=== PATIENT | female | born 1945 | race Caucasian/White ===

== ENCOUNTER → 2019-04-21 | Day surgery (SDC) | payer MEDICARE ==
[~2019-04-21] MED LIST: ASPIRIN81 MG PO; CARVEDILOL12.5 MG PO; FENTANYL CITRATE/PF 100MCG/2 ML INJ ONE; HYDROCHLOROTHIA25 MG PO; MIDAZOLAM HCL 2 MG/2 ML VIAL ONE; OR PHACO EYE KIT ONE; PANTOPRAZOLE SO40 MG PO; PREOP PHACO EYE KIT ONE; SINGULAIR10 MG PO
--- OUTSIDE RECORDS SUMMARY | 2019-04-21 11:24 | XMS REPORT | Clinical Summary ---
Author Author [employer] Address Unknown Phone Unavailable Care Team Providers Care Pick Up And Delivery Driver Name Role Phone Enid Berry MD PCP Unavailable Allergies Comments Active Allergy Reactions Severity Noted Date Codeine 05/26/2018 Medications End Date Status Medication Sig Dispensed Refills Start Date Active aspirin (ECOTRIN) 81 MG Take 81 mg by 0 enteric coated tablet mouth every evening. Active carvedilol (COREG) 12.5 Take 12.5 mg 0 MG tablet by mouth 2 (two) times a day with meals. Active hydroCHLOROthiazide Take 25 mg by 0 (HYDRODIURIL) 25 MG mouth daily. tablet Active omeprazole (PriLOSEC) 20 Take 20 mg by 0 MG capsule mouth daily as needed. Active lisinopril Take 1 tablet 30 tablet 3 (PRINIVIL,ZESTRIL) 10 mg (10 mg total) 8 tablet by mouth daily for 30 days. 05/27/2018 Discontinued rosuvastatin (CRESTOR) 5 Take 5 mg by 0 MG tablet mouth every evening. 06/26/2018 atorvastatin (LIPITOR) 40 Take 1 tablet 30 tablet 3 MG tablet (40 mg total) 8 by mouth nightly for 30 days. Active Problems Problem Noted Date Chest pain 05/26/2018 Encounters Care Team Description Date Type Specialty Vita Merino MD Ghosh, Sidharth, MD Chest pain, unspecified type (Primary Dx) 05/26/2018 Emergency General Internal Medicine - 05/27/2018 after 04/20/2018 Social History Date Tobacco Use Types Packs/Day Years Used Never Smoker Smokeless Tobacco: Never Used Alcohol Use Drinks/Week oz/Week Comments Yes rarely Sex Assigned at Date Recorded Not on file Industry Job Start Date Occupation Not on file Not on file Not on file Travel End Travel History Travel Start No recent travel history available. Last Filed Vital Signs Time Taken Vital Sign Reading 05/27/2018 3:24 PM CDT Blood Pressure 92/54 05/27/2018 3:24 PM CDT Pulse 63 05/27/2018 3:24 PM CDT Temperature 36.9 C (98.5 F) 05/27/2018 3:24 PM CDT Respiratory Rate 18 05/27/2018 3:24 PM CDT Oxygen Saturation 94% - Inhaled Oxygen - Concentration 05/26/2018 8:59 AM CDT Weight 105 kg (232 lb) 05/26/2018 8:59 AM CDT Height 177.8 cm (5' 10") 05/26/2018 8:59 AM CDT Body Mass Index 33.29 Plan of Treatment Health Maintenance Due Date Last Done Comments BREAST CANCER SCREENING 1997 COLONOSCOPY SCREENING 1997 SHINGLES VACCINES (#1) 1997 65+ PNEUMOCOCCAL VACCINE 2012 (1 of 2 - PCV13) INFLUENZA VACCINE 04/16/2019 Procedures Comments Procedure Name Priority Date/Time Associated Diagnosis NM MYOCARDIAL PERFUSION Routine 05/27/2018 REST STRESS 1 DAY 1:15 PM CDT CV STRESS TEST NUCLEAR Routine 05/27/2018 CARDIO 1:15 PM CDT CV STRESS TEST NUCLEAR Routine 05/27/2018 CARDIO 1:15 PM CDT LIPID PANEL Routine 05/27/2018 5:04 AM CDT ECG 12-LEAD Routine 05/26/2018 4:46 PM CDT THYROID STIMULATING Routine 05/26/2018 HORMONE 4:13 PM CDT TROPONIN Timed 05/26/2018 4:13 PM CDT ECHOCARDIOGRAM 2D Routine 05/26/2018 COMPLETE W MMODE SPECTRAL 2:31 PM CDT COLOR DOPPLER ([id number]) ECG 12-LEAD Routine 05/26/2018 12:37 PM CDT TROPONIN Timed 05/26/2018 12:12 PM CDT ZZESTIMATED GFR STAT 05/26/2018 9:09 AM CDT B NATRIURETIC PEPTIDE STAT 05/26/2018 9:09 AM CDT COMPREHENSIVE METABOLIC STAT 05/26/2018 PANEL 9:09 AM CDT HC COMPLETE BLD COUNT STAT 05/26/2018 W/AUTO DIFF 9:09 AM CDT TROPONIN STAT 05/26/2018 9:09 AM CDT XR CHEST 1 VW PORTABLE STAT 05/26/2018 9:08 AM CDT ECG 12-LEAD STAT 05/26/2018 9:01 AM CDT ECG 12-LEAD Routine 05/26/2018 9:01 AM CDT ECG ED PRELIMINARY Routine 05/26/2018 INTERPRETATION 8:59 AM CDT after 04/20/2018 Results * Cv stress procedure (05/27/2018 1:15 PM CDT) Resting HR 68 [facility] Resting BP 124 [facility] Peak MET 7.0 [facility] Achieved Protocol Name [facility] MUSE Time in 00:05:16 [facility] Exercise Phase Max Systolic BP 160 [facility] Max Diastolic 80 [facility] BP Max Heart Rate 120 [facility] Max Predicted 150 [facility] Heart Rate Target HR (220 - Age)*100% [facility] Formula Test Indication chest pain [facility] Arrhy During Ex [facility] ECG Interp [facility] Before EX ECG Interp [facility] During Ex Ex Summary [facility] Comment Overall HR [facility] Response to Exercise Overall BP [facility] Response To Exercise Reason for [facility] Termination Stress Test Sub optimal heart rate-Patient [facility] Impression unable to continue. switched to [employer]- Specimen Performing Organization Address City/State/Zipcode Phone Number [facility] [address] [place] [address] * Cv stress test (05/27/2018 1:15 PM CDT) Resting HR 65 [facility] Peak MET 1.0 [facility] Achieved Protocol Name ILIANA [facility] M[facility] Time in 00:01:00 [facility] Exercise Phase Max Systolic BP 140 H MUSE Max Diastolic 80 H MUSE BP Max Heart Rate 85 H MUSE Max Predicted 150 H MUSE Heart Rate Target HR (220 - Age)*100% [facility] M[facility] Formula Test Indication chest pain [facility] M[facility] Stress Test Waveform interpreted in report [facility] Impression associated with image study. No interpretation is provided as part of this Stress ECG report.--Electronically Signed By Yusuf Martin MD ([id number]), editor farm journal [place] ([id number]) on 05/27/2018 10:32:27 AM Target HR 127.50 bpm [facility] M[facility] Specimen Performing Organization Address [facility] Phone Number [facility] [address] [place] [address] * Myocardial perfusion (05/27/2018 1:15 PM CDT) Target HR 127.50 bpm [facility] Resting HR 74 BPM [facility] Rest[facility] BP 124/90 mmHg [facility] Specimen Narrative Performed At [facility] The study is normal. Study Quality: good. SPECT images demonstrate a normal perfusion study. Normal left ventricular systolic function. All segments of left ventricle demonstrated normal wall motion, normal wall thickness. Probably normal left ventricular perfusion. There is a diaphragmatic attenuation of the apical inferior wall with normal wall motion. Performing Organization Address [facility] Phone Number [facility] [address] [place] [address] * Lipid panel (05/27/2018 5:04 AM CDT) Cholesterol 228 (H) <200 mg/dL [facility] DEPARTMENT OF PATHOLOGY AND GENOMIC MEDICINE Triglycerides 203 (H) <150 mg/dL [facility] DEPARTMENT OF PATHOLOGY AND GENOMIC MEDICINE HDL cholesterol 44 >40 mg/dL [facility] DEPARTMENT OF PATHOLOGY AND GENOMIC MEDICINE LDL cholesterol 144 (H)Comment: Result <100 mg/dL [facility] obtained by direct LDL DEPARTMENT OF measurement PATHOLOGY AND GENOMIC MEDICINE Lipid panel SeeBelow [facility] interpretation Comment: DEPARTMENT OF Total Cholesterol PATHOLOGY AND (mg/dL) GENOMIC <200 MEDICINE Desirable 200-239Borderline -high >=240High Triglycerides (mg/dL) <150 Normal 150-199Borderline -high 200-499High >=500Very high HDL Cholesterol (mg/dL) <40Low (male) <40Low (female) LDL Cholesterol (mg/dL) <100 Optimal 100-129Near or above optimal 130-159Borderline -high 160-189High >=190Very high Risk Catergories that modify LDL goals. Risk Catergories LDL goal (mg/dL) CHD and CHD risk equivalent<100 (10-year risk >20%) Multiple (2+) risk factors <130 (10-year risk=<20%) 0-1 risk factors <160 (<10-year risk) Defining levels of lipids in metabolic syndrome Triglycerides >=150 mg/dL HDL Cholesterol Men <40 mg/dL Women <40 mg/dL Non-HDL cholesterol is a second target for therapy in persons with high triglycerides (>=200 mg/dL) Specimen Plasma specimen Performing Organization Address City/[facility] Phone Number [facility] [id number] [place] [address] [place] [address] PATHOLOGY AND GENOMIC MEDICINE * ECG 12 lead (05/26/2018 4:46 PM CDT) Only the most recent of 4 results within the time period is included. Ventricular 54 [facility] rate Atrial rate 54 [facility] IN interval 142 [facility] QRSD interval 94 [facility] QT interval 440 [facility] QTC interval 417 [facility] P axis 1 -11 [facility] QRS axis 1 -21 [facility] T wave axis 4 [facility] EKG impression Sinus bradycardia-Nonspecific [facility]USE T wave abnormality-Abnormal ECG-In automated comparison with ECG of 26-MAY-2018 12:37,-No significant change was found- Specimen Performing Organization Address City/[facility] Phone Number [facility] [address] [place] [address] * Troponin (05/26/2018 4:13 PM CDT) Only the most recent of 3 results within the time period is included. Troponin <0.300 0.000 - 0.300 ng/mL [facility] Comment: DEPARTMENT OF 0.30 - 1.49 PATHOLOGY AND ng/mlMay GENOMIC indicate increased risk of MEDICINE acute coronary syndrome. >=1.5 ng/ml Consistent with acute myocardial infarction. The diagnostic value of a single normal or non-diagnostic result is questionable.Serial samples at 2-6 hour intervals are required to rule out acute myocardial injury. Specimen Plasma specimen Performing Organization Address City/[facility]/Zipcode Phone Number [facility] [address] [place] [address] PATHOLOGY AND [employer] MEDICINE * Thyroid stimulating hormone (05/26/2018 4:13 PM CDT) Pathologist [facility] TSH 2.20 0.27 - 4.20 uIU/mL [facility] DEPARTMENT OF PATHOLOGY AND [facility] Specimen Plasma specimen Performing Organization Address City/[facility] Phone Number [facility] DEPARTMENT OF [address] [place] [address] [place] [address] PATHOLOGY AND [facility] MEDICINE * Echocardiogram complete w contrast and 3D if needed (05/26/2018 2:31 PM CDT) AoV Area, Vmax 2.28 cm2 [facility] AoV Area, VTI 2.62 cm2 [facility] AoV Mean PG 5.87 mmHg [facility] AoV Peak PG 11.78 mmHg [facility] AoV Vmax 1.72 m/s [facility] AoV VTI 0.32 m [facility] IVS,d 0.86 cm [facility] LV,d 4.26 cm [facility] LV EF,A2C 54.82 % [facility] LV EF,A4C 55.31 % [facility] LV EF,BP 55.65 % [facility] Martínez Colbert,d A2C 7.42 cm [facility] Martínez Colbert,d A4C 7.13 cm [facility] Martínez Colbert,s A2C 6.44 cm [facility] Martínez Colbert,s A4C 6.34 cm [facility] LV,s 2.86 cm [facility] LV SV,A2C 31.30 % [facility] LV SV,A4C 36.32 % [facility] LV Vol,d A2C 57.09 mL [facility] LV Vol,d A4C 65.66 ml [facility] LV Vol,d BP 62.12 ml [facility] LV Vol,s A2C 25.79 mL [facility] LV Vol,s A4C 29.34 ml [facility] LV Vol,s BP 27.55 nl [facility] LVOT Diam,S 2.08 cm [facility] LVOT Vmax 1.15 m/s [facility] LVOT VTI 0.24 m [facility] LVPWD,d 1.14 cm [facility] TR Vpeak 2.30 mm/s [facility] MV E A ratio 0.66 mmHg [facility] TR pk grad 13.36 mmHg [facility] E wave 275.21 msec [facility] decelartion time MV Peak A Alex 1.09 m/s [facility] MV valve area p 5.18 cm2 [facility] 1/2 method MV Peak E Alex 0.72 m/s [facility] MV stenosis 42.45 ms [facility] pressure 1/2 time AV LVOT peak 5.26 mmHg [facility] gradient LV SYS VOL 31.24 ml [facility] LV MILLER VOL 81.12 ml [facility] LV SV Teich 2D 49.88 ml [facility] LVOT SI 37.20 ml/m2 [facility] AoV Cusp sep 1.48 [facility] AoV Vmn 1.12 [facility] IVS s 2D 1.14 [facility] LA Ao Ratio 1.32 [facility] Mmode LVOT Vmn 0.72 [facility] Ao root annulus 3.38 cm [facility] PV AT 83.04 msec [facility] LVOT mean grad 2.41 mmHg [facility] LVPW s PLAX 1.26 cm [facility] MV Decel slope 2.61 m/s2 [facility] LA Vol MOD A4C 26.71 ml [facility] Velocity Ratio 0.67 m/s [facility] (V1/V2) EF 61.49 % [facility] E/A ratio 0.66 [facility] LVOT area 3.40 cm2 [facility] LA volume 31.0 cm3 [facility] LA Area d A4C 27 cm2 [facility] RVSP (TR) 26.15 mmHg [facility] RA pressure 5.00 mmHg [facility] RVSP 26.15 mmHg [facility] LA diam s 4.50 cm [facility] Aortic Root 3.40 cm [facility] D E excurs 1.80 [facility] E f slope 0.06 [facility] E prime lat 0.06 [facility] E ira sept 0.11 [facility] PV acc T slope 9.00 [facility] Specimen Narrative Performed At [facility] The left ventricle chamber size is normal. Left Ventricular ejection fraction is 60 - 65%. No pericardial effusion There is mild sclerosis of the aortic valve leaflets. Spectral Doppler shows impaired relaxation pattern of left ventricular diastolic filling. Performing Organization Address City/State/Zipcode Phone Number [facility] [address] [place] [address] * Estimated GFR (05/26/2018 9:09 AM CDT) Pathologist [facility] GFR Non Af Amer 55 (A) mL/min/1.73 m2 [facility] DEPARTMENT OF PATHOLOGY AND GENOMIC MEDICINE GFR Af Amer 66 mL/min/1.73 m2 [facility] Comment: DEPARTMENT OF Chronic kidney disease: <60 PATHOLOGY AND mL/min/1.73m2 GENOMIC Kidney failure: <15 MEDICINE mL/min/1.73m2 The estimated GFR is calculated from the IDMS-traceable Modification of Diet in Renal Disease Equation. The accuracy of the calculation is poor when the creatinine is normal. Calculated values >90 mL/min/1.73m2 are not reported. This equation has not been validated in children (<18 years), women, the elderly (>70 years), or ethnic groups other than Caucasians and Americans. Specimen Plasma specimen Performing Organization Address City/[facility]/Zipcode Phone Number [address] [place] [address] PATHOLOGY AND GENOMIC MEDICINE * CBC with platelet and differential (05/26/2018 9:09 AM CDT) Pathologist [facility] WBC 11.58 (H) 4.50 - 11.00 k/uL [facility] DEPARTMENT OF PATHOLOGY AND GENOMIC MEDICINE RBC 4.97 4.20 - 5.50 m/uL [facility] DEPARTMENT OF PATHOLOGY AND GENOMIC MEDICINE HGB 15.2 12.0 - 16.0 g/dL [facility] DEPARTMENT OF PATHOLOGY AND GENOMIC MEDICINE HCT 45.9 37.0 - 47.0 % [facility] DEPARTMENT OF PATHOLOGY AND GENOMIC MEDICINE MCV 92.4 82.0 - 100.0 fL [facility] DEPARTMENT OF PATHOLOGY AND GENOMIC MEDICINE MCH 30.6 27.0 - 34.0 pg [facility] DEPARTMENT OF PATHOLOGY AND GENOMIC MEDICINE MCHC 33.1 31.0 - 37.0 g/dL [facility] DEPARTMENT OF PATHOLOGY AND GENOMIC MEDICINE RDW - SD 44.1 37.0 - 55.0 fL [facility] DEPARTMENT OF PATHOLOGY AND GENOMIC MEDICINE MPV 11.2 8.8 - 13.2 fL [facility] DEPARTMENT OF PATHOLOGY AND GENOMIC MEDICINE Platelet count 308 150 - 400 k/uL [facility] DEPARTMENT OF PATHOLOGY AND GENOMIC MEDICINE Nucleated RBC 0.00 /100 WBC [facility] DEPARTMENT OF PATHOLOGY AND GENOMIC MEDICINE Neutrophils 69.4 (H) 39.0 - 69.0 % [facility] DEPARTMENT OF PATHOLOGY AND GENOMIC MEDICINE Lymphocytes 13.3 (L) 25.0 - 45.0 % [facility] DEPARTMENT OF PATHOLOGY AND GENOMIC MEDICINE Monocytes 15.8 (H) 0.0 - 10.0 % [facility] DEPARTMENT OF PATHOLOGY AND GENOMIC MEDICINE Eosinophils 0.0 0.0 - 5.0 % [facility] DEPARTMENT OF PATHOLOGY AND GENOMIC MEDICINE Basophils 0.2 0.0 - 1.0 % [facility] DEPARTMENT OF PATHOLOGY AND GENOMIC MEDICINE Specimen Blood Performing Organization Address [facility] Phone Number [address] [place] [address] PATHOLOGY [facility] GENOMIC [facility] * B natriuretic peptide (05/26/2018 9:09 AM CDT) Pathologist [facility] BNP 33 0 - 100 pg/mL [facility] DEPARTMENT PATHOLOGY AND GENOMIC MEDICINE Specimen Blood Performing Organization Address City/[facility]/Zipcode Phone Number [address] [place] [address] PATHOLOGY [facility] * Comprehensive metabolic panel (05/26/2018 9:09 AM CDT) [facility] Sodium 139 135 - 148 mEq/L [facility] DEPARTMENT OF PATHOLOGY AND GENOMIC MEDICINE Potassium 4.3 3.5 - 5.0 mEq/L [facility] DEPARTMENT OF PATHOLOGY AND GENOMIC MEDICINE Chloride 104 98 - 112 mEq/L [facility] DEPARTMENT OF PATHOLOGY AND GENOMIC MEDICINE CO2 23 (L) 24 - 31 mEq/L [facility] DEPARTMENT OF PATHOLOGY AND GENOMIC MEDICINE Anion gap 12@ANIO 7 - 15 mEq/L [facility] DEPARTMENT OF PATHOLOGY AND GENOMIC MEDICINE BUN 25 (H) 8 - 23 mg/dL [facility] DEPARTMENT OF PATHOLOGY AND GENOMIC MEDICINE Creatinine 1.0 (H) 0.5 - 0.9 mg/dL [facility] DEPARTMENT OF PATHOLOGY AND GENOMIC MEDICINE Glucose 99 65 - 99 mg/dL [facility] DEPARTMENT OF PATHOLOGY AND GENOMIC MEDICINE Calcium 8.7 (L) 8.8 - 10.2 mg/dL [facility] DEPARTMENT OF PATHOLOGY AND GENOMIC MEDICINE Protein 7.7 6.3 - 8.3 g/dL [facility] Comment: DEPARTMENT OF [employer] PATHOLOGY AND 4.6-7.0 g/dL GENOMIC 1 MEDICINE week 4.4-7.6 g/dL 7 months-1year 5.1-7.3 g/dL 1-2 years5.6-7 .5 g/dL >3 years6.0-8 .0 g/dL 18-150 6.3-8.3 g/dL Albumin 4.2 3.5 - 5.0 g/dL [facility] DEPARTMENT OF PATHOLOGY AND GENOMIC MEDICINE A/G ratio 1.2 0.7 - 3.8 [facility] DEPARTMENT OF PATHOLOGY AND GENOMIC MEDICINE Alkaline 99 35 - 104 U/L [facility] phosphatase DEPARTMENT OF PATHOLOGY AND GENOMIC MEDICINE AST 14 10 - 35 U/L [facility] DEPARTMENT OF PATHOLOGY AND GENOMIC MEDICINE ALT 15 5 - 50 U/L [facility] DEPARTMENT OF PATHOLOGY AND GENOMIC MEDICINE Total bilirubin 0.3 0.0 - 1.2 mg/dL [facility] DEPARTMENT OF PATHOLOGY AND GENOMIC MEDICINE Specimen Plasma specimen Performing Organization Address City/[facility] [place] [place] [address] PATHOLOGY AND GENOMIC MEDICINE * XR Chest 1 Vw Portable (05/26/2018 9:08 AM CDT) Specimen Narrative Performed At EXAMINATION:XR CHEST 1 VW PORTABLE RADIANT CLINICAL HISTORY:chest pain COMPARISON:No priors IMPRESSION: Heart and mediastinum mildly prominent probably due to AP technique. Osseous structures appear intact. Lungs are clear. [facility]-[id number] Procedure Note Interface, Radiology Results Incoming - 05/26/2018 9:13 AM CDT EXAMINATION: XR CHEST 1 VW PORTABLE CLINICAL HISTORY: chest pain COMPARISON: No priors IMPRESSION: Heart and mediastinum mildly prominent probably due to AP technique. Osseous structures appear intact. Lungs are clear. [facility]-[id number] Performing Organization Address City/[facility] Phone Number [facility] [address] [place] [address] * ECG ED Preliminary Interpretation - NOT AN ORDER (05/26/2018 8:59 AM CDT) Narrative Performed At Vita Merino MD 05/26/20183:49 PM ECG ED Preliminary Interpretation - Not an Order Performed by: VITA MERINO Authorized by: VITA MERINO ECG reviewed by ED Physician in the absence of a railroad car repair supervisor: yes (read at 0902) Previous ECG: Previous ECG:Unavailable Interpretation: Interpretation: abnormal Rate: ECG rate:56 ECG rate assessment: bradycardic Rhythm: Rhythm: sinus rhythm and sinus bradycardia Ectopy: Ectopy: none QRS: QRS axis:Left Conduction: Conduction: normal ST segments: ST segments:Normal T waves: T waves: inverted Inverted:V1, V2 and III after 04/20/2018 Insurance Type Payer Benefit Subscriber ID Effective Phone Address Plan / Dates Group Medicare MEDICARE MEDICARE xxxxxxxxxx 2012- CYRUS, PART A AND Present [place] B Commercial AAR AAR xxxxxxxxxxx [id number] SUPPLEMENT resent Advance Directives Patient has advance care planning documents on file. For more information, agatha mejia contact: Cyrus Barnes [address] [place] [address]
--- OUTSIDE RECORDS SUMMARY | 2019-04-21 11:24 | XMS REPORT ---
Author Author [facility] Address Unknown Phone Unavailable Care Team Providers Care [employer] Name Role Phone Unavailable Unavailable Payers Payer Name Policy Type Policy Number Effective Date Expiration Date Problems This patient has no known problems. Allergies, Adverse Reactions, Alerts Allergy Name Allergy Type Status Severity Reaction(s) Onset Date Inactive Date Treating Clinician Comments codeine DA Active U 2019-04-10 00:00:00 codeine DA Active WI 2019-01-30 00:00:00 codeine DA Active WI 2018-07-18 00:00:00 codeine DA Active WI 2018-07-17 00:00:00 codeine DA Active WI 2018-05-20 00:00:00 codeine DA Active WI 2017-09-26 00:00:00 Medications This patient has no known medications. Results Test Description Test Time Test Comments Text Results Atomic Results Result Comments - XR FLUORO FOR SPINE INJ 2019-04-10 08:32:00 Patient Name: WILLIAM BARTON IMELDA Unit No: [id number] EXAMS: CPT CODE: [id number] XR FLUORO FOR SPINE INJ 63509 LUMBAR TRANSFORAMINAL INJECTION REFERRING PHYSICIAN: PREOPERATIVE DIAGNOSIS: Degenerative Lumbar Disc Disease. POSTOPERATIVE DIAGNOSIS: Bilateral radiculopathy PROCEDURES PERFORMED 1. Fluoroscopically guided needle localization of the bilateral L4, bilateral L5 spinal nerve/nerves with transforaminal epidural steroid injection/injections. 2. Transforaminal epidurogram/epidurograms at bilateral L4, bilateral L5. FINDINGS: Poor filling all, there is a retrolisthesis at L4-5. Concordant provocation bilateral L5 hips. Pain relief-100%. ANTIBIOTIC: Cefazolin ESTIMATED BLOOD LOSS: Minimal ANESTHESIA: (TIVA )Total intravenous anesthetic (patient intolerant to sedatives and hypnotics) COMPLICATIONS: None DETAILS OF PROCEDURE: After obtaining stable vital signs, informed consent and IV access, with no known contraindications to proceeding, the patient was taken to the fluoroscopy suite and placed in a prone position with all extremities padded and appropriate monitors placed. A sterile prep and drape was performed over the lumbosacral spine. Using fluoroscopic visualization at each level the insertion site was marked for a paravertebral approach to the foramen. Using standard technique, a 25 gauge needle was advanced to the base of the pedicle. In AP view, final positioning was obtained outside the 6 on the clock position on the pedicle. Then, 1 ml of Isovue-300 contrast was injected to produce the epidurograms. No paresthesias were elicited with needle insertion or injection and there were no signs of intravascular or intrathecal uptake. Then, with 1 ml of 4% lidocaine and 10 mg of triamcinolone was injected incrementally with frequent negative aspirations. There were no signs of intravascular or intrathecal uptake. Each subsequent level was done using the same technique and medications. The patient's vital signs remained stable. The patient was taken to the PACU in good condition. at 0832 Reported and signed by: Jeffy Sosa M.D. [facility] NAME: WILLIAM BARTON IMELDA [address] [facility] PHYS: DOCUD - Jeffy Sosa MD [place], [place] [address] : 1945 AGE: 73 SEX: F LOC: МАРИНА PHONE #: [phone] EXAM DATE: 04/10/2019 STATUS: REG [facility] FAX #: [phone] RAD #: D/C DT PAGE 1 Signed Report (CONTINUED) Patient Name: WILLIAM BARTON IMELDA Unit No: [id number] EXAMS: CPT CODE: [id number] XR FLUORO FOR SPINE INJ 94278 <Continued> CC: Technologist: Ekaterina Peacock(R) Transcribed D/ (0832) JaimeUVD [facility] NAME: WILLIAM BARTON IMELDA [address] [facility] PHYS: Jeffy Bowen MD [place], [place] [address] : 1945 AGE: 73 SEX: F LOC: МАРИНА PHONE #: [phone] EXAM DATE: 04/10/2019 STATUS: REG [facility] FAX #: [phone] RAD #: D/C DT PAGE 2 Signed Report Patient Name: WILLIAM BARTON IMELDA Unit No: [id number] EXAMS: CPT CODE: [id number] XR FLUORO FOR SPINE INJ 96106 <Continued> Orig Print D/T: S: 04/10/2019 (0836) [facility] NAME: WILLIAM BARTON [address] [facility] PHYS: Jeffy Bowen MD [place], [place] [address] : 1945 AGE: 73 SEX: F LOC: МАРИНА PHONE #: [phone] EXAM DATE: 04/10/2019 STATUS: REG [facility] FAX #: [phone] RAD #: D/C DT PAGE 3 Signed Report - XR C-SPINE 6+V 2019-04-01 21:01:00 Patient Name: WILLIAM BARTON IMELDA Unit No: [id number] EXAMS: CPT CODE: [id number] XR C-SPINE 6+V 7205 2 CERVICAL SPINE 5 VIEWS PLUS FLEXION AND EXTENSION COMMENT: Vertebral body heights are maintained. There is interspace narrowing and endplate degenerative change from C3 to T1. Reversal the normal curvature the spine is present at C3-4. No abnormal motion is seen with flexion and extension. at 2101 Reported and signed by: Pedro Roach MD CC: Jeffy Sosa MD Technologist: PASCUAL GREEN, RT(R) Transcribed D/ (2100) tELIJCL [facility] NAME: WILLIAM BARTON IMELDA [address] [place] [address] PHYS: Jeffy Bowen MD : 1945 AGE: 73 SEX: F [place], [place] [address] LOC: Y.MRI PHONE #: [phone] EXAM DATE: 03/31/2019 STATUS: [facility] FAX #: [phone] RAD #: D/C DT PAGE 1 Signed Report Patient Name: WILLIAM BARTON IMELDA Unit No: [id number] EXAMS: CPT CODE: [id number] XR C-SPINE 6+V 86829 <Continued> Orig Print D/T: S: 04/01/2019 (2105) [facility] NAME: WILLIAM BARTON IMELDA [address] [facility] PHYS: DOCUD - DoctorJeffy MD : 1945 AGE: 73 SEX: F [place] [address] LOC: Y.MRI PHONE #: [phone] EXAM DATE: 03/31/2019 STATUS: [facility] FAX #: [phone] RAD #: D/C DT PAGE 2 Signed Report - MRI C-SPINE W/O CONT 2019-03-31 14:57:00 Patient Name: WILLIAM BARTON IMELDA Unit No: [id number] EXAMS: CPT CODE: [id number] MRI C-SPINE W/O CONT 50452 DIAGNOSIS: 1. At C2-3 there is no evidence for disc bulge or herniation, bony canal or foraminal stenosis. 2. At C3-4 there is endplate spur formation and disc bulging lateralizing left posterior lateral and foraminal with mild left foraminal narrowing. No right foraminal stenosis is seen. The canal is stenotic with an AP diameter of 10 mm. 3. At C4-5 there is endplate spur formation and disc bulging lateralizing left paracentral impinging on the cord. The canal is stenotic with an AP diameter of 9 mm. No foraminal narrowing is seen. 4. At C5-6 there is endplate spur formation and mild disc bulging without canal or foraminal narrowing. 5. At C6-7 there is endplate spur formation and disc bulging without canal or foraminal narrowing. 6. At C7-T1 there is no evidence for disc bulge or herniation, bony canal or foraminal stenosis. COMMENT: COMPARISON: No prior exams available. Scans were performed in the sagittal and axial planes utilizing T1, gradient echo, T2 and inversion recovery images. Endplate and disc degeneration is seen from C3 to C7. The remaining discs are desiccated. There is a reversal the normal curvature the spine. The cord appears normal in size and signal. at 1457 Reported and signed by: Pedro Roach MD CC: Jeffy Sosa MD Technologist: Marley Alvarenga, RT(R) Transcribed D/ (7140) t.SABINAR.JCL [facility] NAME: WILLIAM BARTON IMELDA [address] [place] [address] PHYS: Jeffy Bowen MD : 1945 AGE: 73 SEX: F [place] [address] LOC: Y.MRI PHONE #: [phone] EXAM DATE: 03/31/2019 STATUS: REG [facility] FAX #: [phone] RAD #: D/C DT PAGE 1 Signed Report Patient Name: WILLIAM BARTON IMELDA Unit No: [id number] EXAMS: CPT CODE: [id number] MRI C-SPINE W/O CONT 64835 <Continued> Orig Print D/T: S: 03/31/2019 (3721) [facility] NAME: WILLIAM BARTON IMELDA [address] [place] [address] PHYS: Jeffy Bowen MD : 1945 AGE: 73 SEX: F [place] [address] LOC: Y.MRI PHONE #: [phone] EXAM DATE: 03/31/2019 STATUS: REG [facility] FAX #: [phone] RAD #: D/C DT PAGE 2 Signed Report - XR FLUORO FOR SPINE INJ 2019-01-30 08:40:00 Patient Name: WILLIAM BARTON IMELDA Unit No: [id number] EXAMS: CPT CODE: [id number] XR FLUORO FOR SPINE INJ 27294 LUMBAR TRANSFORAMINAL INJECTION AND LUMBAR FACET BLOCK REFERRING PHYSICIAN: PREOPERATIVE DIAGNOSIS: 1. Degenerative Lumbar Disc Disease. 2. Lumbar Facet Arthropathy POSTOPERATIVE DIAGNOSIS: Lumbar facet arthropathy lumbar radiculopathy PROCEDURES PERFORMED Fluoroscopically guided needle localization of the left L4 with transforaminal epidural steroid injections 2. Transforaminal epidurogram/epidurograms at left L4. 3. Fluoroscopic guided injections of the bilateral L4-5, bilateral L5-S1 intra-articular facets. 4. Arthrograms of the bilateral L4-5, bilateral L5-S1 lumbar facets FINDINGS: Concordant provocation left L4 nerve root hip, concordant provocation bilateral L4-5 facet back pain ANTIBIOTIC: Cefazolin ESTIMATED BLOOD LOSS: Minimal ANESTHESIA: (TIVA) Total intravenous anesthetic (patient intolerant to sedatives and hypnotics) COMPLICATIONS: None DETAILS OF PROCEDURE: After obtaining stable vital signs, informed consent and IV access, with no known contraindications to proceeding, the patient was taken to the fluoroscopy suite and placed in a prone position with all extremities padded and appropriate monitors placed. A sterile prep and drape was performed over the lumbosacral spine. Using fluoroscopic visualization at each level the insertion site was marked for a paraverte bral approach to the foramen. Using standard technique, a 25 gauge needle was advanced to the base of the pedicle. In AP view, final positioning was obtained outside the 6 o clock position on the pedicle. Then, 1 ml of Isovue-300 contrast was injected to produce the epidurograms. No paresthesias were elicited with needle insertion or injection and there were no signs of intravascular or intrathecal uptake. Then, with 1 ml of 4% lidocaine and 10 mg of triamcinolone was injected incrementally with frequent negative aspirations. There were no signs of intravascular or intrathecal uptake. The patient's vital signs remained stable. The patient was placed in a prone position and the lumbosacral spine [facility] NAME: WILLIAM BRATON IMELDA [address] [facility] PHYS: DOCUD - Doctor,Jeffy [place] MD [place], [place] [address] : 1945 AGE: 73 SEX: F LOC: МАРИНА PHONE #: [phone] EXAM DATE: 01/30/2019 STATUS: [facility] FAX #: [phone] RAD #: D/C DT PAGE 1 Signed Report (CONTINUED) Patient Name: WILLIAM BARTON IMELDA Unit No: [id number] EXAMS: CPT CODE: [id number] XR FLUORO FOR SPINE INJ 78750 <Continued> was prepped and draped in sterile fashion. Using standard technique, using fluoroscopic guidance, a 27-gauge needle was advanced into the facet joint and 2 mL of Isovue-300 contrast was injected to produce an arthrogram. Please see results of the arthrogram above. Then 2 mL was of 0.75 percent Marcaine and 2 mL of 4% lidocaine and 20 mg of triamcinolone was injected into the joint. Areas were cleaned of the prep and the patient was taken to the recovery room. GANGLION OF IMPAR INJECTION AND COCCYX BLOCK REFERRING PHYSICIAN: PREOPERATIVE DIAGNOSIS: Coccydynia POSTOPERATIVE DIAGNOSIS: Coccydynia PROCEDURES PERFORMED Fluoroscopically guided needle localization of the ganglion of impar and ganglion of impar block 2. Fluoroscopic guided needle localization of the coccyx and a coccyx block FINDINGS: 1. Good spread around the ganglion of impar and the coccyx ANTIBIOTIC: Cefazolin ESTIMATED BLOOD LOSS: Minimal ANESTHESIA:TIVA) Total intravenous anesthetic (patient intolerant to sedatives and hypnotics) COMPLICATIONS: None DETAILS OF PROCEDURE: After obtaining stable vital signs, informed consent and IV access, with no known contraindications to proceeding, the patient was taken to the fluoroscopy suite and placed in a prone position with all extremities padded and appropriate monitors placed. A sterile prep and drape was performed over the lumbosacral spine. Using fluoroscopic visualization at each level the insertion site was marked for a paravertebral approach to the ganglion of impar and coccyx. Using standard technique, a 25 gauge needle was advanced to the ganglion of impar and the coccyx in AP view, the needle was advanced to the ganglion impar and the coccyx and then1 ml of Isovue-300 contrast was injected to show the ganglion impar. AP, lateral and oblique views were documented. No paresthesias were elicited with needle insertion or injection and there were no signs of intravascular or intrathecal uptake. Then, 2 ml of 0.75% bupivacaine with 1 ml of 4% lidocaine and 10 mg of triamcinolone was injected [facility] NAME: WILLIAM BARTON IMELDA [address] [facility] PHYS: DOCUD - Doctor,Jeffy [place] MD [place], [place] [address] : 1945 AGE: 73 SEX: F LOC: МАРИНА PHONE #: [phone] EXAM DATE: 01/30/2019 STATUS: [facility] FAX #: [phone] RAD #: D/C DT PAGE 2 Signed Report (CONTINUED) Patient Name: WILLIAM BARTON IMELDA Unit No: [id number] EXAMS: CPT CODE: [id number] XR FLUORO FOR SPINE INJ 52070 <Continued> incrementally with frequent negative aspirations. There were no signs of intravascular or intrathecal uptake. Each sub sequent level was done using the same technique and medications. The patient's vital signs remained stable. The patient was taken to the PACU in good condition. at 0840 Reported and signed by: Jeffy Sosa M.D. CC: Jeffy Sosa MD Technologist: IGLESIA DOMINGO RT(R) Transcribed D/ (40) [facility] NAME: WILLIAM BARTON IMELDA [address] [facility] PHYS: Jeffy Bowen MD [place] [address] : 1945 AGE: 73 SEX: F LOC: МАРИНА PHONE #: [phone] EXAM DATE: 01/30/2019 STATUS: [facility] FAX #: [phone] RAD #: D/C DT PAGE 3 Signed Report Patient Name: WILLIAM BARTON IMELDA Unit No: [id number] EXAMS: CPT CODE: [id number] XR FLUORO FOR SPINE INJ 91192 <Continued> Orig Print D/T: S: 01/30/2019 (0844) [facility] NAME: WILLIAM BARTON IMELDA [address] [facility] PHYS: Jeffy Bowen MD [place], [place] [address] : 1945 AGE: 73 SEX: F LOC: МАРИНА PHONE #: [phone] EXAM DATE: 01/30/2019 STATUS: REG [facility] FAX #: [phone] RAD #: D/C DT PAGE 4 Signed Report - XR FLUORO FOR SPINE INJ 2018-10-03 14:59:00 Patient Name: WILLIAM BARTON Unit No: [id number] EXAMS: CPT CODE: [id number] XR FLUORO FOR SPINE INJ 33186 LUMBAR DISCOGRAM AND PLACEMENT OF INTRADISCAL STEROIDS REFERRING PHYSICIAN: PREOPERATIVE DIAGNOSIS: Degenerative lumbar disc disease. POSTOPERATIVE DIAGNOSIS: Symptomatic discs L4-5, L5-S1 . 2. PROCEDURE PERFORMED: Fluoroscopically guided needle localization of the level , L4-5, L5-S1 discs with provocative discography, placement of intradiscal steroids FINDINGS: The level L4-5, L5-S1 discogram showed: a) Provocation was positive for low back pain L4-5 L5-S1 b) L4-5 disc was positive with annular degeneration, L5-S1 disc was positive with annular degeneration c) Injectate volume:4 ml, she Omnipaque dye, 10 mg Kenalog, 10 mg Ancef, 1 mL of 0.75% Marcaine ANTIBIOTIC: Cefazolin IV and intradiscal ESTIMATED BLOOD LOSS:Minimal ANESTHESIA:(TIVA) Total intravenous anesthetic (patient intolerant to sedatives and hypnotics) COMPLICATIONS:None DETAILS OF PROCEDURE: After obtaining stable vital signs, informed consent and IV access, there were no laboratory, radiographic or other contraindications to proceeding. The patient received preoperative antibiotics and was taken to the fluoroscopy suite where the patient was placed in a prone position with all extremities padded and appropriate monitors placed. The patient was sterilely prepped and draped over the lumbosacral spine. Under fluoroscopic visualization the levels , L4-5, L5-S1 discs were visualized and the insertion sites were marked for paramedian approaches. Lidocaine 1.5%, 2 ml, was infiltrated into the skin, subcutaneous tissue, and superficial musculature after which a 20 gauge spinal introducer needle was advanced to the level of the facets. A 25 gauge curved B-bevel needle was then passed through the introducer and advanced into the center of the disc. [facility] NAME: WILLIAM BARTON [address] [facility] PHYS: DOCUD - DoctorJeffy MD [place], [place] [address] : 1945 AGE: 73 SEX: F LOC: BenynFRANSICO PHONE #: [phone] EXAM DATE: 10/03/2018 STATUS: [facility] FAX #: [phone] RAD #: D/C DT PAGE 1 Signed Report (CONTINUED) Patient Name: WILLIAM BARTON IMELDA Unit No: [id number] EXAMS: CPT CODE: [id number] XR FLUORO FOR SPINE INJ 58931 <Continued> No paresthesias were elicited. Isovue 300 contrast was then injected with a manometric syringe to produce the discogram. Opening, symptomatic and peak pressures were recorded. Each disc was then injected with antibiotics and the symptomatic discs were also injected with triamcinolone/bupivacaine. The needles were removed and sterile Band-Aids were placed over the insertion sites. The patient was taken to the recovery room in stable condition. Electronic[employer] lly Signed by Noah Sosa on 10/03/2018 at 1767 Reported and signed by: Jeffy Sosa M.D. CC: Jeffy Sosa MD Technologist: ELIZABETH JONES RT(R) Transcribed D/ (3737) tELIUVD [facility] NAME: WILLIAM BARTON IMELDA [address] [facility] PHYS: Jeffy Bowen MD [place] [address] : 1945 AGE: 73 SEX: F LOC: МАРИНА PHONE #: [phone] EXAM DATE: 10/03/2018 STATUS: [facility] FAX #: [phone] RAD #: D/C DT PAGE 2 Signed Report Patient Name: WILLIAM BARTON IMELDA Unit No: [id number] EXAMS: CPT CODE: [id number] XR FLUORO FOR SPINE INJ 17753 <Continued> Orig Print D/T: S: 10/03/2018 (1502) [facility] NAME: WILLIAM BARTON IMELDA [address] [facility] PHYS: Jeffy Bowen MD [place] [address] : 1945 AGE: 73 SEX: F LOC: МАРИНА PHONE #: [phone] EXAM DATE: 10/03/2018 STATUS: [facility] FAX #: [phone] RAD #: D/C DT PAGE 3 Signed Report
[2019-04-21 14:50] VITALS: BP 132/72
== END | disposition home or self-care (01) ==
LOC: OR 11:19
PROVIDERS: ATTEND Ophthalmology
DX: H25.11 Age-related nuclear cataract, right eye (principal); I10 Essential (primary) hypertension; E78.5 Hyperlipidemia, unspecified; R91.1 Solitary pulmonary nodule; M47.816 Spondylosis without myelopathy or radiculopathy, lumbar region; K21.9 Gastro-esophageal reflux disease without esophagitis; Z88.6 Allergy status to analgesic agent; Z01.810 Encounter for preprocedural cardiovascular examination; Z79.82 Long term (current) use of aspirin
CPT/HCPCS: 66984; 93005; J2250; J3010; V2632

== ENCOUNTER → 2019-05-05 | Day surgery (SDC) | payer MEDICARE ==
[2019-04-28 11:28] LABS: BASOPHILS # (AUTO) 0.1 (0.0-0.1); BASOPHILS % 0.5 % (0.0-1.0); EOSINOPHILS # (AUTO) 0.1 (0.0-0.4); EOSINOPHILS % 0.6 % (0.0-6.0); HEMATOCRIT 46.4 % (34.2-44.1); HEMOGLOBIN 15.3 g/dL (12.0-16.0); LYMPHOCYTES # (AUTO) 1.5 (1.0-3.2); MEAN CORPUSCULAR HEMOGLOBIN 31.3 pg (28-32); MEAN CORPUSCULAR VOLUME 94.9 fL (81-99); MONOCYTES # (AUTO) 1.5 (0.2-0.8); MONOCYTES % 16.1 % (4.4-11.3); NEUTROPHILS # (AUTO) 6.2 (2.1-6.9); NEUTROPHILS % 66.5 % (38.7-80.0); PLATELET COUNT 250 x10e3/uL (140-360); RED BLOOD COUNT 4.89 x10e6/uL (3.6-5.1); RED CELL DISTRIBUTION WIDTH 12.7 % (11.7-14.4)
[2019-04-28 12:08] LABS: LYMPHOCYTES % (MANUAL) 19 % (19-48); MONOCYTES % (MANUAL) 8 % (3.4-9.0); NEUTROPHILS % (MANUAL) 72 % (40-74); PLATELET ESTIMATE ADEQUATE; PLATELET MORPHOLOGY COMMENT NORMAL; RBC MORPHOLOGY COMMENT NORMAL
--- OUTSIDE RECORDS SUMMARY | 2019-05-05 09:24 | XMS REPORT | Clinical Summary ---
Author Author [facility] Organization [place] [facility] Address Unknown Phone Unavailable Care Team Providers Care Classics Teacher Name Role Phone Enid Berry MD PCP Allergies Comments Active Allergy Reactions Severity Noted [...] mouth daily for 30 days. 05/27/2018 Discontinued (Stop Taking at Discharge) rosuvastatin (CRESTOR) 5 Take 5 mg by [...] Emergency General Internal Medicine - 05/27/2018 after 05/04/2018 Social History Date Tobacco Use Types Packs/Day Years Used Never Smoker Smokeless Tobacco: Never Used Drinks/Week oz/Week Comments Alcohol Use rarely Yes Sex Assigned at Date Recorded Not on file Industry Job Start Date Occupation Not on file Not on file Not on file Travel End Travel History Travel Start No recent travel history available. Last Filed Vital Signs Reading Time Taken Comments Vital Sign 92/54 05/27/2018 3:24 PM CDT Blood Pressure 63 05/27/2018 3:24 PM CDT Pulse 36.9 C (98.5 F) 05/27/2018 3:24 PM CDT Temperature 18 05/27/2018 3:24 PM CDT Respiratory Rate 94% 05/27/2018 3:24 PM CDT Oxygen Saturation - - Inhaled Oxygen Concentration 105 kg (232 lb) 05/26/2018 8:59 AM CDT Weight 177.8 cm (5' 10") 05/26/2018 8:59 AM CDT Height 33.29 05/26/2018 8:59 AM CDT Body Mass Index Plan of Treatment Health Maintenance Due Date [...] MMODE SPECTRAL 2:31 PM CDT COLOR DOPPLER (03690) ECG 12-LEAD Routine 05/26/2018 12:37 PM CDT [...] Routine 05/26/2018 INTERPRETATION 8:59 AM CDT after 05/04/2018 Results * Cv stress procedure (05/27/2018 1:15 PM CDT) Resting HR 68 [facility] Resting BP 124 [facility] Peak MET 7.0 [facility] Achieved Protocol Name [facility] Time in 00:05:16 [facility] Exercise [...] MUSE Impression unable to continue. switched to Lexiscan- Specimen Performing Organization Address City/State/Zipcode Phone Number H MUSE [address] [place] [address] * Cv stress test (05/27/2018 1:15 PM CDT) Resting HR 65 [facility] MUSE Peak MET 1.0 [facility] MUSE Achieved Protocol Name ILIANA [facility] MUSE Time in 00:01:00 [facility] MUSE Exercise Phase Max Systolic BP 140 [facility] Max Diastolic 80 [facility] BP Max Heart Rate 85 [facility] Max Predicted 150 [facility] Heart Rate Target HR (220 - Age)*100% [facility] MUSE Formula Test Indication chest pain [facility] MUSE Stress Test Waveform interpreted in report [facility] MUSE Impression associated with image study. No interpretation is provided as part of this Stress ECG report.--Electronically Signed By Yusuf Martin MD ([id number]), greeting card editor [place]ida Park ([id number]) on 05/27/2018 10:32:27 AM Target HR 127.50 bpm [facility] MUSE Specimen Performing Organization Address [facility] Phone Number [facility] MUSE [address] [place] [address] * Myocardial perfusion (05/27/2018 1:15 PM CDT) Pathologist [facility] Target HR 127.50 bpm [facility] Resting HR 74 BPM [facility] Resting BP 124/90 [facility] Specimen Narrative Performed At [facility] The study is normal. Study Quality: good. SPECT images demonstrate a normal perfusion study. Normal left ventricular systolic function. All segments of left ventricle demonstrated normal wall motion, normal wall thickness. Probably normal left ventricular perfusion. There is a diaphragmatic attenuation of the apical inferior wall with normal wall motion. Performing Organization Address [facility] Phone Number [facility] [address] [place] [address] * Lipid panel (05/27/2018 5:04 AM CDT) Pathologist [facility] Cholesterol 228 (H) <200 mg/dL [facility] DEPARTMENT OF PATHOLOGY AND GENOMIC MEDICINE Triglycerides 203 (H) <150 mg/dL [facility] DEPARTMENT OF PATHOLOGY AND GENOMIC MEDICINE HDL cholesterol 44 >40 mg/dL [facility] DEPARTMENT OF PATHOLOGY AND GENOMIC MEDICINE LDL cholesterol 144 (H)Comment: Result <100 mg/dL [facility] obtained by direct LDL DEPARTMENT OF measurement PATHOLOGY AND GENOMIC MEDICINE Lipid panel SeeBelow [facility] interpretation Comment: DEPARTMENT OF Total Cholesterol [...] mg/dL) Specimen Plasma specimen Performing Organization Address City/[facility] Phone Number [facility] DE[facility] [address] [place] [address] PATHOLOGY AND GENOMIC MEDICINE * ECG 12 lead (05/26/2018 4:46 PM CDT) Only the most recent of 4 results within the time period is included. Ventricular 54 [facility] rate Atrial rate 54 [facility] NC interval 142 [facility] QRSD interval 94 [facility] QT interval 440 [facility] QTC interval 417 [facility] P axis 1 -11 [facility] QRS axis 1 -21 [facility] T wave axis 4 [facility] EKG impression Sinus bradycardia-Nonspecific [facility] T wave abnormality-Abnormal ECG-In automated comparison with ECG of 26-MAY-2018 12:37,-No significant change was found- Specimen Performing Organization Address City/[facility] Phone Number [facility] [address] [place] [address] * Troponin (05/26/2018 4:13 PM CDT) Only the most recent of 3 results within the time period is included. Troponin <0.300 0.000 - 0.300 ng/mL [facility] Comment: DEPARTMENT OF 0.30 - 1.49 PATHOLOGY AND ng/mlMay GENOMIC indicate increased risk of MEDICINE acute coronary syndrome. >=1.5 ng/ml Consistent with acute myocardial infarction. The diagnostic value of a single normal or non-diagnostic result is questionable.Serial samples at 2-6 hour intervals are required to rule out acute myocardial injury. Specimen Plasma specimen Performing Organization Address City/State/Zipcode Phone Number [facility] [place]MENT [place] [id number] [place] [address] [place] [address] PATHOLOGY AND GENOMIC MEDICINE * Thyroid stimulating hormone (05/26/2018 4:13 PM CDT) TSH 2.20 0.27 - 4.20 uIU/mL [facility] DEPARTMENT OF PATHOLOGY AND [facility] Specimen Plasma specimen Performing Organization Address [facility] Phone Number [address] [place] [address] PATHOLOGY AND GENOMIC MEDICINE * Echocardiogram complete w contrast and [...] LV EF,BP 55.65 % [facility] [place],d A2C 7.42 cm [facility] [place],d A4C 7.13 cm [facility] [place],s A2C 6.44 cm [facility] [place],s A4C 6.34 cm [facility] LV,s 2.86 [...] filling. Performing Organization Address City/State/Zipcode Phone Number [facility] [address] [place] [address] * Estimated GFR (05/26/2018 9:09 AM CDT) GFR Non Af Amer 55 (A) mL/min/1.73 m2 [facility] DEPARTMENT OF PATHOLOGY AND GENOMIC MEDICINE GFR Af Amer 66 mL/min/1.73 m2 [facility] Comment: DEPARTMENT OF Chronic kidney disease: [...] Americans. Specimen Plasma specimen Performing Organization Address City/[facility]/Zipcode Phone Number [address] [place] [address] PATHOLOGY AND GENOMIC MEDICINE * CBC with platelet and differential (05/26/2018 9:09 AM CDT) WBC 11.58 (H) 4.50 - 11.00 k/uL [facility] DEPARTMENT OF PATHOLOGY AND GENOMIC MEDICINE RBC 4.97 4.20 - 5.50 m/uL [facility] DEPARTMENT OF PATHOLOGY AND GENOMIC MEDICINE HGB 15.2 12.0 - 16.0 g/dL [facility] DEPARTMENT OF PATHOLOGY AND GENOMIC MEDICINE HCT 45.9 37.0 - 47.0 % [facility] DEPARTMENT OF PATHOLOGY AND GENOMIC MEDICINE MCV 92.4 82.0 - 100.0 fL [facility] DEPARTMENT OF PATHOLOGY AND GENOMIC MEDICINE MCH 30.6 27.0 - 34.0 pg [facility] DEPARTMENT OF PATHOLOGY AND GENOMIC MEDICINE MCHC 33.1 31.0 - 37.0 g/dL [facility] DEPARTMENT OF PATHOLOGY AND GENOMIC MEDICINE RDW - SD 44.1 37.0 - 55.0 fL [facility] DEPARTMENT OF PATHOLOGY AND GENOMIC MEDICINE MPV 11.2 8.8 - 13.2 fL [facility] DEPARTMENT OF PATHOLOGY AND GENOMIC MEDICINE Platelet count 308 150 - 400 k/uL [facility] DEPARTMENT OF PATHOLOGY AND GENOMIC MEDICINE Nucleated RBC 0.00 /100 WBC [facility] DEPARTMENT OF PATHOLOGY AND GENOMIC MEDICINE Neutrophils 69.4 (H) 39.0 - 69.0 % [facility] DEPARTMENT OF PATHOLOGY AND GENOMIC MEDICINE Lymphocytes 13.3 (L) 25.0 - 45.0 % [facility] DEPARTMENT OF PATHOLOGY AND GENOMIC MEDICINE Monocytes 15.8 (H) 0.0 - 10.0 % [facility] DEPARTMENT OF PATHOLOGY AND GENOMIC MEDICINE Eosinophils 0.0 0.0 - 5.0 % [facility] DEPARTMENT OF PATHOLOGY AND GENOMIC MEDICINE Basophils 0.2 0.0 - 1.0 % [facility] DEPARTMENT OF PATHOLOGY AND GENOMIC MEDICINE Specimen Blood Performing Organization Address City/[facility] Cent[facility]ode Phone Number [address] [place] [address] PATHOLOGY [facility] GENOMIC [facility] * B natriuretic peptide (05/26/2018 9:09 AM CDT) Pathologist [facility] BNP 33 0 - 100 pg/mL [facility] DEPARTMENT OF PATHOLOGY AND GENOMIC MEDICINE Specimen Blood Performing Organization Address City/[facility]/Zipcode Phone Number [address] [place] [address] PATHOLOGY [facility] * Comprehensive metabolic panel (05/26/2018 9:09 AM CDT) Pathologist [facility] Sodium 139 135 - 148 mEq/L [facility] DEPARTMENT OF PATHOLOGY AND GENOMIC MEDICINE Potassium 4.3 3.5 - 5.0 mEq/L [facility] DEPARTMENT OF PATHOLOGY AND GENOMIC MEDICINE Chloride 104 98 - 112 mEq/L [facility] DEPARTMENT OF PATHOLOGY AND GENOMIC MEDICINE CO2 23 (L) 24 - 31 mEq/L [facility] DEPARTMENT OF PATHOLOGY AND GENOMIC MEDICINE Anion gap 12@ANIO 7 - 15 mEq/L [facility] DEPARTMENT OF PATHOLOGY AND GENOMIC MEDICINE BUN 25 (H) 8 - 23 mg/dL [facility] DEPARTMENT OF PATHOLOGY AND GENOMIC MEDICINE Creatinine 1.0 (H) 0.5 - 0.9 mg/dL [facility] DEPARTMENT OF PATHOLOGY AND GENOMIC MEDICINE Glucose 99 65 - 99 mg/dL [facility] DEPARTMENT OF PATHOLOGY AND GENOMIC MEDICINE Calcium 8.7 (L) 8.8 - 10.2 mg/dL [facility] DEPARTMENT OF PATHOLOGY AND GENOMIC MEDICINE Protein 7.7 6.3 - 8.3 g/dL [facility] Comment: DEPARTMENT OF PATHOLOGY AND 4.6-7.0 g/dL GENOMIC MEDICINE week 4.4-7.6 g/dL 7 months-1year 5.1-7.3 g/dL 1-2 years5.6-7 .5 g/dL >3 years6.0-8 .0 g/dL 18-150 6.3-8.3 g/dL Albumin 4.2 3.5 - 5.0 g/dL [facility] DEPARTMENT OF PATHOLOGY AND GENOMIC MEDICINE A/G ratio 1.2 0.7 - 3.8 [facility] DEPARTMENT OF PATHOLOGY AND GENOMIC MEDICINE Alkaline 99 35 - 104 U/L [facility] phosphatase DEPARTMENT OF PATHOLOGY AND GENOMIC MEDICINE AST 14 10 - 35 U/L [facility] DEPARTMENT OF PATHOLOGY AND GENOMIC MEDICINE ALT 15 5 - 50 U/L [facility] DEPARTMENT OF PATHOLOGY AND GENOMIC MEDICINE Total bilirubin 0.3 0.0 - 1.2 mg/dL [facility] DEPARTMENT OF PATHOLOGY AND GENOMIC MEDICINE Specimen Plasma specimen Performing Organization Address City/[facility] Phone Number [facility] DEPARTMENT [address] [address] PATHOLOGY AND GENOMIC MEDICINE * XR Chest 1 Vw Portable (05/26/2018 9:08 AM CDT) Specimen Narrative Performed At EXAMINATION:XR CHEST 1 VW PORTABLE [facility]IANT CLINICAL HISTORY:chest pain COMPARISON:No priors IMPRESSION: Heart and mediastinum mildly prominent probably due to AP technique. Osseous structures appear intact. Lungs are clear. [facility]-[id number] Procedure Note Interface, Radiology Results Incoming - 05/26/2018 9:13 AM CDT EXAMINATION: XR CHEST 1 VW PORTABLE CLINICAL HISTORY: chest pain COMPARISON: No priors IMPRESSION: Heart and mediastinum mildly prominent probably due to AP technique. Osseous structures appear intact. Lungs are clear. [facility]-[id number] Performing Organization Address City/[facility] Phone Number [facility] [address] [place] [address] * ECG ED Preliminary Interpretation - NOT AN ORDER (05/26/2018 8:59 AM CDT) Narrative Performed At Vita Merino MD 05/26/20183:49 PM ECG ED Preliminary Interpretation - Not an Order Performed by: VITA MERINO Authorized by: VITA MERINO ECG reviewed by ED Physician in the absence of a it portfolio manager: yes (read at [id number]) Previous ECG: Previous ECG:Unavailable Interpretation: Interpretation: abnormal Rate: ECG rate:56 ECG rate assessment: bradycardic Rhythm: Rhythm: sinus rhythm and sinus bradycardia Ectopy: Ectopy: none QRS: QRS axis:Left Conduction: Conduction: normal ST segments: ST segments:Normal T waves: T waves: inverted Inverted:V1, V2 and III after 05/04/2018 Insurance Type Payer Benefit Subscriber ID Effective Phone Address Plan / Dates Group Medicare MEDICARE MEDICARE xxxxxxxxxx 2012- [place], PART A AND Present [place] Commercial AAR AAR xxxxxxxxxxx [id number] SUPPLEMENT resent Advance Directives For more information, please contact: [phone] Patient Word Processor Explanation Type Date Recorded Advance Directives, 05/26/2018 9:26 AM Living Will and Medical Power of Management Advisor
[2019-05-05 12:35] VITALS: BP 119/68
== END | disposition home or self-care (01) ==
LOC: OR 09:13
PROVIDERS: ATTEND Ophthalmology
DX: H25.12 Age-related nuclear cataract, left eye (principal); I10 Essential (primary) hypertension; E78.5 Hyperlipidemia, unspecified; K21.9 Gastro-esophageal reflux disease without esophagitis; M47.816 Spondylosis without myelopathy or radiculopathy, lumbar region; M54.2 Cervicalgia; Z88.6 Allergy status to analgesic agent; Z01.812 Encounter for preprocedural laboratory examination; Z68.34 Body mass index [BMI] 34.0-34.9, adult
CPT/HCPCS: 36415; 66984; 85025; J2250; J3010; V2632

== ENCOUNTER 2019-08-03 05:57 | Emergency (ER) | payer MEDICARE ==
[~2019-08-03] VITALS: Ht 177.8 cm; Wt 102.5 kg
[~2019-08-03 05:57] MED LIST changes: -FENTANYL CITRATE/PF 100MCG/2 ML INJ ONE; -MIDAZOLAM HCL 2 MG/2 ML VIAL ONE; -OR PHACO EYE KIT ONE; -PREOP PHACO EYE KIT ONE
--- NOTE | 2019-08-03 07:05 | Diagnostic Imaging Report ---
EXAMINATION: CHEST 2 VIEWS INDICATION: ^COUGH ^[id number] ^[id number] ^Y COMPARISON: None FINDINGS: PA and lateral views TUBES and LINES: None. LUNGS: Diffuse hyperinflation. Prominence of the pulmonary vasculature. No infiltrates. PLEURA: No pleural effusion or pneumothorax. HEART AND MEDIASTINUM: The heart is top normal in size to mildly enlarged. The aorta is tortuous. BONES AND SOFT TISSUES: Mild degenerative changes of the spine. No focal osseous lesions. Soft tissues are unremarkable. UPPER ABDOMEN: No free air under the diaphragm. IMPRESSION: Mild pulmonary vascular congestion. Pulmonary hyperinflation suggestive of small airways disease. No infiltrates. Signed by: Dr. Corey Sanford MD on 08/03/2019 7:02 AM
== END 2019-08-03 07:11 | disposition home or self-care (01) ==
LOC: ER 05:57
DX: R05 Cough (principal); J20.9 Acute bronchitis, unspecified; I10 Essential (primary) hypertension; E78.5 Hyperlipidemia, unspecified; K21.9 Gastro-esophageal reflux disease without esophagitis; M54.9 Dorsalgia, unspecified; G89.29 Other chronic pain
CPT/HCPCS: 71046; 99283

== ENCOUNTER → 2020-09-20 | Outpatient (CLI) | payer OTHER ==
[~2020-09-20] MED LIST changes: +COVID-19 VACC, MRNA(MODERNA)/PF 100 MCG/0.5 ML VIAL IM ONE
== END | disposition home or self-care (01) ==
LOC: VACCPMC 18:00
DX: Z23 Encounter for immunization (principal); Z20.822 Contact with and (suspected) exposure to COVID-19

== ENCOUNTER → 2020-10-21 | Outpatient (CLI) | payer OTHER | END | DRG 951 | LOC: VACCPMC 10:40 | DX: Z23 Encounter for immunization (principal); Z20.822 Contact with and (suspected) exposure to COVID-19 | CPT/HCPCS: 0012A; 91301 ==